=== PATIENT | female | born 1965 | race African-American/Black ===

== ENCOUNTER 2017-07-05 12:16 | Observation (INO) | payer OTHER, SELFPAY ==
[2017-07-05 12:58] LABS: #Basophils 0.1 thou/uL (0.0-0.2); #Eosinphils 0.1 thou/uL (0.0-0.7); #Lymphocytes 2.3 thou/uL (1.20-3.40); #Monocytes 0.3 thou/uL (0.11-0.59); %Basophils 1.2 % (0.0-1.0); %Eosinophils 1.1 % (0.0-10.0); %Lymphocytes 48.9 % (21.0-51.0); %Monocytes 6.3 % (0.0-10.0); Hematocrit 41.8 % (36.0-47.0); Mean Platelet Volume 7.8 fL (7.4-10.4); Red Blood Cell (RBC) Count 4.31 mill/uL (4.20-5.40); White Blood Cell (WBC) Count 4.8 thou/uL (4.8-10.8)
[2017-07-05 13:07] LABS: PTT 25.1 SEC (22.9-36.1); Prothrombin Time 12.7 SEC (12.0-14.7)
--- NOTE | 2017-07-05 13:07 | RAD ---
CHEST ONE VIEW: History: 52-year-old female with chest pain and headache without cough. Comparison: 06-05-17 FINDINGS: Heart size is normal. The lungs are clear. No pneumonia, edema, or pleural effusion. IMPRESSION: No acute intrathoracic disease. POS: [facility]
[2017-07-05 13:18] LABS: ALT (SGPT) 23 U/L (8-55); AST (SGOT) 24 U/L (5-34); Alkaline Phosphatase 45 U/L (40-150); Anion Gap 9 mmol/L (10-20); BUN (Urea Nitrogen) 10 mg/dL (9.8-20.1); Bilirubin, Total 0.4 mg/dL (0.2-1.2); CK (CPK) 159 U/L (29-168); Calc. Creatinine Clearance 0 mL/min (70-130); Calcium 9.6 mg/dL (7.8-10.44); Carbon Dioxide 29 mmol/L (22-29); Chloride 107 mmol/L (98-107); Estimated GFR-MDRD Greater than 90; Globulin 3.9 g/dL (2.4-3.5); Protein, Total 8.2 g/dL (6.0-8.3)
[2017-07-05 13:22] LABS: Troponin I Less than 0.010 ng/mL (< 0.028)
[2017-07-05] MEDS ORDERED: Nitroglycerin 0.4 MG TAB (25 Tab Bottle) ONE (15:33)
[2017-07-05] MEDS ORDERED: Nitroglycerin 2% Ointment 1 INCH/1 GM Packet ONE (15:33)
[2017-07-05 16:36] LABS: Troponin I Less than 0.010 ng/mL (< 0.028)
[2017-07-05] MEDS ORDERED: diphenhydrAMINE 50 MG/ML VIAL ONE (16:45)
[2017-07-05] MEDS ORDERED: Ondansetron ODT 4 MG TAB PO PRN (18:43)
[2017-07-05] MEDS ORDERED: Nitroglycerin 0.4 MG TAB (25 Tab Bottle) PO PRN (18:43)
[2017-07-05] MEDS ORDERED: traZODone HCl 50 MG TAB PO PRN (18:43)
[2017-07-05] MEDS ORDERED: Acetaminophen 325 MG TAB PO PRN (18:44)
[2017-07-05 18:45] VITALS: BMI 30.4
[2017-07-05] MEDS ORDERED: Aspirin 325 MG TAB PO SCH (18:45)
[2017-07-05 19:05] LABS: Hemoglobin A1c 5.2 % (4.0-6.0)
--- NOTE | 2017-07-05 19:16 | PDOC.EVN ---
Event Note - Event Note Event Note: Attending H&P I personally evaluated the patient and discussed the management with Dr. Guzmán. I have reviewed the written H&P and it is repeated by me. I agree with the History, Examination, Assessment and Plan documented above with any addition or exceptions noted below. At the time of my exam, Ms vargas is feeling well. No headache or chest pain is present.
[2017-07-05 19:35] LABS: Troponin I Less than 0.010 ng/mL (< 0.028)
[2017-07-05] MEDS ORDERED: Atorvastatin Calcium 40 MG TAB PO SCH (21:00)
--- NOTE | 2017-07-05 21:57 | HP-2 ---
CODE STATUS: FULL. PRIMARY CARE PHYSICIAN: Dr. Kwan. ATTENDING: Dr. Leyva. RESIDENT: Dr. Guzmán. CHIEF COMPLAINT: Chest pain and headache. HISTORY OF PRESENT ILLNESS: This is a 52-year-old female who presents with a 1-day history of chest pain. She said she woke up with this pain. She describes the pain as sharp in her left chest radiat ing to her left shoulder. She states that she went about her day and it just would not relieve and t hat is why she decided to go to the ER. She denies any shortness of breath, diaphoresis, nausea, vom iting, or diarrhea. She does note an associated migraine at this time. She has nitro at home and nadege doe said that the pain relieved by this. She is not currently in any pain except for her headache. Nadege doe has no other complaints at this time. In the ER, she was given nitro and aspirin as well as Benadr yl and Reglan for her migraine. PAST MEDICAL HISTORY: Significant for asthma, hyperlipidemia, hypertension, mitral regurgitation, an xiety and depression. PAST SURGICAL HISTORY: Significant for cholecystectomy, hernia repair, tubal ligation and a colon re section. ALLERGIES: AMOXICILLIN. MEDICATIONS: 1. She is on hydrochlorothiazide 25 mg b.i.d. 2. Metoprolol tartrate 100 mg b.i.d. 3. Atorvastatin 40 mg. 4. Trazodone 50 mg. 5. Niacin 500 mg. 6. Nitrostat 0.4 mg sublingual. 7. Meloxicam 15 mg FAMILY HISTORY: Significant for strokes; diabetes mellitus, type 2; hypertension and heart disease i n both her mother and her father's side of the family. SOCIAL HISTORY: She denies any tobacco use. She does socially drink alcohol. She denies any drug u se. REVIEW OF SYSTEMS: General: Denies any fevers or chills, weight changes, night sweats, or fatigue. Eyes: Denies any vision changes. ENT: Denies nasal congestion, rhinorrhea, or sore throat. Respi ratory: Denies cough, congestion, shortness of breath or exercise intolerance. Cardiovascular: She does admit to chest pain. Does admit to paroxysmal nocturnal dyspnea. Gastrointestinal: Denies na usea, vomiting, diarrhea, constipation, abdominal pain. Genitourinary: Denies incontinence, dysuria , polyuria, or discharge. Skin: Denies rashes, lesions, jaundice, or itching. Musculoskeletal: De nies pain, tenderness, stiffness, swelling or arthritis. Neurologic: Denies any weakness, numbness, syncope, or seizures. Does admit to a headache. psychiatric: She does admit to anxiety and depres timothy history. PHYSICAL EXAMINATION: VITAL SIGNS: Blood pressure 152/102, pulse was 69, respirations are 20, temperature max 98.5, pulse ox 100% on room air, current weight is 73.5 kilos. GENERAL: She is alert and oriented x4. She is appropriately interactive. EYES: PERRLA. Conjunctivae within normal limits. ENT: Tympanic membranes are pearly yuan without bulging or erythema. Nasal mucosa and oropharynx wi thin normal limits. NECK: Supple. No lymphadenopathy, no thyromegaly, no bruit. CARDIOVASCULAR: Regular rate and rhythm. No murmurs, no gallops. Radial and pedal pulses equal aye aterally. RESPIRATORY: Normal effort. No retractions. Clear lungs to auscultation bilaterally. SKIN: Warm and dry. No cyanosis. No lesions. ABDOMEN: Soft, nontender to palpation. Bowel sounds are present x4. No masses or distention. EXTREMITIES: No clubbing, cyanosis, no edema. MUSCULOSKELETAL: Structure, tone, muscle strength and range of motion within normal limits. NEUROLOGIC: No focal neurologic deficits. Sensation within normal limits. Cranial nerves II-XII ar e grossly intact. GCS was 15. PSYCHIATRIC: Appropriate. LABORATORY DATA: She had a white blood cell count of 4.8, a platelet count of 223, hemoglobin 13.8, hematocrit 41.8, MCV 97.0, percent neutrophils 42.6. CK was 159, CK-MB 1.0, troponin I less than 0.0 1. Sodium 141, potassium 4.2, chloride 107, bicarbonate 29, BUN 10, creatinine 0.74, glucose 110, ca lcium 9.6, total protein 8.2, albumin 4.3, total bilirubin 0.4, AST 24, ALT 23, alkaline phosphatase 45. PT was 12.7, INR was 1.0, PTT was 25.1. EKG showed normal sinus rhythm. Chest x-ray showed not lul acute. ASSESSMENT AND PLAN: This is a 52-year-old female who presents with: 1. Atypical chest pain, ruling out ACS. We are going to get a TSH, mag, and phosphatase. We are go ing to admit to tele, her heart score was 4. We are going to get a stress test in the morning. Make her n.p.o. at midnight. Get an echocardiogram. Trend her troponins. Get an A1c and a fasting lipi d panel. 2. Hypertension. Continue her home medications. 3. Hyperlipidemia. Continue her home medications. 4. Mitral regurgitation history. We are going to get an echocardiogram to see the status of that be cause she was complaining of some paroxysmal nocturnal dyspnea. 5. Asthma, not currently symptomatic, stable. We will recommend outpatient treatment for this. 6. Diabetes mellitus, type 2, and suspected. We are going to check an A1c and we will consider this scale insulin and Accu-Cheks going forward. Disposition and length of hospital stay will be tele observation and 1. Symptomatic medications will be provided. History and physical exam as well as management has been discussed with Dr. Leyva.
[2017-07-05] MEDS: Acetaminophen 325 MG TAB PO PRN (21:58)
[2017-07-06 05:27] LABS: Magnesium 2.2 mg/dL (1.6-2.6); Phosphorus 3.8 mg/dL (2.3-4.7)
--- NOTE | 2017-07-06 06:42 | PDOC.FM ---
- Objective MAR Reviewed: Yes Vital Signs & Weight: Vital Signs (12 hours) Temp Pulse Resp BP BP Pulse Ox 07/06/17 06:03 97 07/06/17 04:00 98.7 F 65 16 130/60 97 07/05/17 23:30 98.8 F 80 18 125/59 L 98 07/05/17 20:33 94 20 154/87 H 07/05/17 20:20 98.7 F 94 20 07/05/17 19:51 96 07/05/17 19:50 98.7 F 76 18 139/71 98 Weight Weight 75.296 kg Result Diagrams: 07/05/17 12:48 07/05/17 12:48 EKG Reviewed by me: Yes Radiology Reviewed by me: Yes Phys Exam - Physical Examination Constitutional: NAD HEENT: moist MMs, sclera anicteric Neck: supple Cardiovascular: RRR, no significant murmur Gastrointestinal: soft, non-tender, no distention, positive bowel sounds Musculoskeletal: no edema, pulses present Neurological: non-focal, moves all 4 limbs Psychiatric: A&O x 3 Skin: no rash, cap refill <2 seconds Dx/Plan (1) Chest pain Code(s): R07.9 - CHEST PAIN, UNSPECIFIED Status: Acute (2) Mitral valve prolapse Code(s): I34.1 - NONRHEUMATIC MITRAL (VALVE) PROLAPSE Status: Chronic (3) HTN (hypertension) Code(s): I10 - ESSENTIAL (PRIMARY) HYPERTENSION Status: Chronic Qualifiers: Hypertension type: essential hypertension Qualified Code(s): I10 - Essential (primary) hypertension (4) HLD (hyperlipidemia) Code(s): E78.5 - HYPERLIPIDEMIA, UNSPECIFIED Status: Chronic Qualifiers: Hyperlipidemia type: unspecified Qualified Code(s): E78.5 - Hyperlipidemia , unspecified - Plan Plan: Plan: Chest pain: - Typical chest pain; rule out ACS - Better after nitro - Nitro for chest pain - Daily ASA - Stress test this AM Hx of mitral valve: - Echo pending HTN: - Well controlled - Continue current home medications HLD: - Continue statin
[2017-07-06] MEDS: Acetaminophen 325 MG TAB PO PRN ×2 (08:47→13:42)
[2017-07-06] MEDS ORDERED: Aspirin 81 mg Enteric Coated Tablet PO SCH (09:00)
[2017-07-06] MEDS ORDERED: Lisinopril 2.5 MG TAB PO SCH (09:00)
[2017-07-06] MEDS ORDERED: Hydrochlorothiazide 25 MG TAB PO SCH (09:00)
--- NOTE | 2017-07-06 11:29 | ADD-PRG ---
DATE OF SERVICE: 07/06/2017 This is an addendum to the note of Dr. Danielle Rand. Ms. Sanabria is a pleasant 52-year-old black female patient who was admitted with 1 day history of c hest pain. She was awoken from sleep with this pain described as sharp in the left chest radiating i nto her left shoulder. She went ahead about her normal day, but the pain became worse, so she presen ilsa to our ER. Nitroglycerin seemed to relieve her pain and she has been admitted for further evalua tion and workup. We have scheduled her for a stress Myoview and pending results of this test she leny l either go for a catheterization or discharge.
[2017-07-06 11:53] VITALS: BP 154/83; TEMP 98.5
[2017-07-06] MEDS ORDERED: Regadenoson 0.4 MG/5 ML SYRINGE ONE (13:00)
--- NOTE | 2017-07-06 14:05 | NM ---
MYOCARDIAL PERFUSION EVALUATION: DATE: 07/06/17 INDICATION: Chest pain. RADIOPHARMACEUTICAL: 30.5 mCi technetium-99m sestamibi IV with stress and 9 mCi technetium-99m sestamibi with rest. FINDINGS: No reversible myocardial perfusion defect is evident. There is normal wall motion and thickening. The estimated LVEF is 61%. IMPRESSION: 1. No scintigraphic evidence of reversible myocardial ischemia. 2. Estimated LVEF of 61%. POS: [facility]
--- NOTE | 2017-07-07 21:35 | DIS-2 ---
DATE OF ADMISSION: 07/05/2017 DATE OF DISCHARGE: 07/06/2017 RESIDENT: Danielle Rand DO ADMITTING ATTENDING: Clyde Rogers MD DISCHARGE ATTENDING: Clyde Rogers MD CONSULTATIONS: None. PROCEDURES: 1. Chest x-ray: No acute intrathoracic disease. 2. Nuclear stress test: No evidence of reversible myocardial ischemia. Estimated left ventricular ejection fraction of 61%. PRIMARY DIAGNOSIS: Atypical chest pain, rule out acute coronary syndrome. SECONDARY DIAGNOSES: 1. Mitral valve prolapse. 2. Hypertension. 3. Hyperlipidemia. DISCHARGE MEDICATIONS: 1. Aspirin 81 mg oral daily. 2. Nitroglycerin 0.4 mg sublingual every 5 minutes. 3. Meloxicam 15 mg oral daily. 4. Niacin 500 mg oral daily. 5. Trazodone 50 mg oral at bedtime. 6. Metoprolol tartrate 50 mg oral twice daily. 7. Hydrochlorothiazide 25 mg oral daily. 8. Atorvastatin 40 mg oral at bedtime. DISCONTINUED MEDICATIONS: None. HISTORY OF PRESENT ILLNESS AND HOSPITAL COURSE: This is a 52-year-old female, who presented with a 1-day history of chest pain that woke her up from sleep. She described the pain as sharp in her left chest radiating down to her left shoulder. It went on for about a day without any resolution, thus prompting her to visit the emergency department. She denied any associated shortness of breath, diaphoresis, nausea, vomiting, or diarrhea. The patient did note an associated migraine at that time. The patient has nitro at home and stated that she eventually took the medication which did help to relieve the pain. In the emergency department, she was given nitro and aspirin as well as Benadryl and Reglan for treatment of her migraine. The patient remained stable throughout the course of her hospital stay. Upon reevaluation the next morning, she was doing well and did not have any complaints of shortness of breath or chest pain. Additionally, her cardiac enzymes were negative x3. A fasting lipid panel was performed which showed a triglycerides 305, cholesterol 197, LDL 97, HDL 39. TSH was performed which was 1.0640. Patient had a hemoglobin A1c of 5.2. A nuclear stress test was performed to evaluate for myocardial ischemia. There is no evidence of myocardial ischemia based on those test results. The patient was advised to follow closely with her primary care physician to ensure that symptoms are completely resolved and do not persist. The patient was in understanding of the necessity for close followup. DISPOSITION: Stable. DISCHARGE INSTRUCTIONS: 1. Location: Home. 2. Activity: As tolerated. 3. Diet: Heart healthy. DISCHARGE FOLLOWUP: The patient is to follow up with her primary care physician , Dr. Kwan within the next 7 days. The patient was understanding the necessity of her close followup and agreeable. CARO[facility]
--- NOTE | 2017-07-16 14:29 | EKG ---
Test Reason : Blood Pressure : / mmHG Vent. Rate : 066 BPM Atrial Rate : 066 BPM P-R Int : 128 ms QRS Dur : 080 ms QT Int : 418 ms P-R-T Axes : 027 016 018 degrees QTc Int : 438 ms Normal sinus rhythm Normal ECG Confirmed by VICKY MORALES DO ([id number]), assistant film editor KALA SHORE ([id number]) on 07/16/2017 2:29:31 PM Referred By: Confirmed By:VICKY MORALES DO
--- NOTE | 2017-07-23 13:23 | EKG ---
Test Reason : Blood Pressure : / mmHG Vent. Rate : 077 BPM Atrial Rate : 077 BPM P-R Int : 124 ms QRS Dur : 084 ms QT Int : 398 ms P-R-T Axes : 034 031 032 degrees QTc Int : 450 ms Normal sinus rhythm Nonspecific T wave abnormality Abnormal ECG When compared with ECG of 01-AUG-2014 16:10, No significant change was found Confirmed by MCKENZIE ROYAL MD ([id number]) on 07/23/2017 1:22:56 PM Referred By: AN Confirmed By:MCKENZIE ROYAL MD
--- NOTE | 2017-07-23 13:35 | STRESS ---
Acquisition Time: 2017-07-06 10:20:41 Total Exercise Time: 00:01:00 Test Indications: CHEST PAIN Medications: Protocol: LEXISCAN Max HR: 116 BPM 69% of Pred: 168 BPM Max BP: 154/094 mmHG Max Work Load: 1.0 METS RESTING ECG: NORMAL SINUS RHYTHM AT 78 BPM SYMPTOMS: CHEST TIGHTNESS APPROPRIATE BLOOD PRESSURE RESPONSE FOR LEXISCAN ECTOPY: NONE ECG RESPONSE: INVERTED T-WAVES INTERPRETATION: POSITIVE ECG/AWAIT NUCLEAR IMAGES FOR DEFINITIVE DIAGNOSIS Confirmed by MCKENZIE ROYAL MD ([id number]) on 07/23/2017 1:34:38 PM Referred By: Cheri NULL Confirmed By:MCKENZIE ROYAL MD
== END 2017-07-06 15:47 | disposition home or self-care (01) ==
LOC: ERS 12:16 → 2SW 15:45
PROVIDERS: ADMIT Family Medicine; ATTEND Family Medicine
DX: R07.89 Other chest pain (principal); I34.1 Nonrheumatic mitral (valve) prolapse; I10 Essential (primary) hypertension; E78.5 Hyperlipidemia, unspecified; R51 Headache; J45.909 Unspecified asthma, uncomplicated; F41.8 Other specified anxiety disorders; Z79.1 Long term (current) use of non-steroidal anti-inflammatories (NSAID); Z79.82 Long term (current) use of aspirin; Z79.899 Other long term (current) drug therapy; Z88.0 Allergy status to penicillin; Z98.51 Tubal ligation status; Z90.49 Acquired absence of other specified parts of digestive tract; Z98.890 Other specified postprocedural states
CPT/HCPCS: 36415; 71010; 78452; 80053; 80061; 82550; 82553; 83036; 83735; 84100; 84443; 84484; 85025; 85610; 85730; 93005; 93010; 93017; 94760; 96374; 96375; A9500; G0378; J1200; J2765; J2785; J7050

== ENCOUNTER 2017-07-08 09:55 | Outpatient (CLI) | payer OTHER | END 2017-07-08 09:56 | disposition home or self-care (01) | LOC: BICRAD 09:55 | PROVIDERS: ATTEND Family Medicine | DX: M16.12 Unilateral primary osteoarthritis, left hip (principal); M17.12 Unilateral primary osteoarthritis, left knee ==

== ENCOUNTER 2017-11-01 15:05 | Outpatient (CLI) | payer BC | END 2017-11-01 15:06 | disposition home or self-care (01) | LOC: BICRAD 15:05 | PROVIDERS: ATTEND Family Medicine | DX: M54.5 Low back pain (principal); G89.29 Other chronic pain; M47.896 Other spondylosis, lumbar region | CPT/HCPCS: 72100 ==

== ENCOUNTER 2021-11-11 19:30 | Outpatient (CLI) | payer OTHER | END 2021-11-11 19:31 | disposition home or self-care (01) | LOC: SLEEPLAB 19:30 | PROVIDERS: ATTEND Family Medicine | DX: G47.33 Obstructive sleep apnea (adult) (pediatric) (principal); R40.0 Somnolence; R53.83 Other fatigue; R51.9 Headache, unspecified; E66.9 Obesity, unspecified; R06.83 Snoring; F32.A Depression, unspecified; I10 Essential (primary) hypertension | CPT/HCPCS: 95810 ==

== ENCOUNTER 2021-12-24 19:30 | Outpatient (CLI) | payer OTHER | END 2021-12-24 19:31 | disposition home or self-care (01) | LOC: SLEEPLAB 19:30 | PROVIDERS: ATTEND Family Medicine | DX: G47.9 Sleep disorder, unspecified (principal); R40.0 Somnolence; R51.9 Headache, unspecified; E66.9 Obesity, unspecified; G47.00 Insomnia, unspecified; F32.9 Major depressive disorder, single episode, unspecified; I10 Essential (primary) hypertension; G47.33 Obstructive sleep apnea (adult) (pediatric) | CPT/HCPCS: 95811 ==